=== PATIENT | female | born 1950 | race Caucasian/White ===

== ENCOUNTER 2016-12-04 17:00 | Inpatient (IN) | payer MEDICARE, BC ==
[~2016-12-04] VITALS: Ht 165.1 cm; Wt 124.5 kg
--- NOTE | ~2016-12-04 | CON ---
PATIENT'S NAME: SHAUN BOWEN [facility] AGE: 66 Y [address] ROOM: [place] [address] LOCATION: GPCU ADMIT DATE: 12/04/2016 Consultation DISCHARGE DATE: FAMILY PHYSICIAN: Nader Velarde MD ATTENDING PHYSICIAN: CANDICE SPARKS REFERRING PHYSICIAN: Moraima Smith NP REASON FOR CONSULTATION: This is a 66-year-old female seen for lower GI bleeding. HISTORY OF PRESENTING ILLNESS: This lady was hospitalized today after she was seen by Dr. Roland in a followup and she was told that she had been having lower GI bleeding 2 days prior to evaluation. She has been on Eliquis and Plavix until today for her PCI which she had in September of 2016. She denies any pain in the abdomen associated with bleeding. Denies any griping, nausea, vomiting, hematemesis, or melena. Blood was bright red and in the form of clots and she passed intermittently clots with stools or separate from stools. Denies any dizzy spells, blackout, or any fall. PAST MEDICAL HISTORY: Significant for diabetes mellitus type 2, arthritis, chronic feet and leg neuropathy, hyperlipidemia, peripheral vascular disease, hypertension. SURGICAL HISTORY: 1. Right total knee arthroplasty. 2. Tonsillectomy. 3. Umbilical hernia repair. 4. Oophorectomy. 5. History of non-ST AL in September 2016 followed by two stent placement in circumflex and right coronary artery. FAMILY HISTORY: Mother had diabetes mellitus and heart disease and breast cancer. Father had diabetes mellitus and heart problems. SOCIAL HISTORY: The patient is a former smoker, quit smoking 12 years ago, smoked one pack. She denies alcohol or illicit drug use. MEDICATIONS: Include, 1. Aspirin which was stopped one month ago. 2. Lipitor 20 mg. 3. Neurontin 900 mg twice daily. 4. Insulin Levemir 50 units subcutaneous daily in the evening. PATIENT'S NAME: SHAUN BOWEN [facility] AGE: 66 Y [address] ROOM: [place] [address] LOCATION: GPCU ADMIT DATE: 12/04/2016 Consultation DISCHARGE DATE: FAMILY PHYSICIAN: Nader Velarde MD ATTENDING PHYSICIAN: CANDICE SPARKS 5. NovoLog as needed. 6. Victoza 1.8 mg subcutaneous daily. 7. Lisinopril/hydrochlorothiazide 20/2.5 mg twice daily. 8. Metformin 1000 mg twice daily. 9. Nifedipine 60 mg daily. 10. Eliquis and Plavix were stopped today. ALLERGIES: PENICILLIN, BACTRIM, NITROFURANTOIN, VARICELLA VIRUS VACCINE, MOBIC, LEVAQUIN. REVIEW OF SYSTEMS: A 10-point review were negative other than mentioned above. PHYSICAL EXAMINATION: GENERAL: Examination shows a well-developed lady who is obese, comfortable in bed, not in any pain, and very pleasant and cooperative. 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 VITAL SIGNS: Her blood pressure was 182/81 and this was on 09/19/2016. Her pulse 94 per minute. Blood pressure today is 154/70, weight is 123 pounds, pulse is 65 per minute, temperature 97.7 degree Fahrenheit. HEENT: Examination of head; normocephalic, atraumatic. NECK: Supple. No lymphadenopathy. CHEST: Clear to palpation, percussion, and auscultation. CARDIAC: Examination reveals both heart sounds normal. No S3 or murmur. ABDOMEN: Soft. It is nontender. It is obese. There are normal bowel sounds. Viscera cannot be palpated because of obesity. Ascites cannot be purcussed UROGENITAL: Nontender lower abdomen. Bladder is not full. MUSCULOSKELETAL: Right knee replacement. She walks with the help of a cane and has pain in the left knee. NEUROLOGICAL: Cranial nerves 2 through 12 intact. Motor and sensory system intact. PSYCHOSOCIAL: She is very pleasant, cooperative, does not seem depressed. LABORATORY DATA: Electrolytes are normal. Glucose is 129, BUN 26, and creatinine 1.2. Albumin 3.1. Lipid profile is normal. CK-MB is 7.8 and troponin I is 0.84, this troponin was reported in September 2016. Hemoglobin today is 9.7, hematocrit 32.4, MCV 81.6, MCH is 24.4, platelet count is 228. Prothrombin time 11.4 and INR is 1.1. She had a lung ventilation scan on 09/14/2016, which showed pulmonary emboli on both sides. ASSESSMENT: 1. Mrs. Bowen has a recent history of gastrointestinal bleeding; however, she states that recent stool has been negative for blood. On visual PATIENT'S NAME: SHAUN BOWEN [facility] AGE: 66 Y [address] ROOM: [id number] [place], [place] [id number] LOC[facility]: [facility] ADMIT DATE: 12/04/2016 Consultation DISCHARGE DATE: FAMILY PHYSICIAN: Nader Velarde MD ATTENDING PHYSICIAN: CANDICE SPARKS examination, she is vitally stable. She is not dizzy or has any symptoms of blood loss, and as much as, she was taking Plavix and Eliquis until today, which was stopped. However, she never had a colonoscopy before. It may not be advisable to do colonoscopy until Saturday because she may need polypectomy which is not safe for at least three days after stopping the above medications. We will, therefore, go ahead and schedule her for EGD and colonoscopy for Saturday. She may stay in the hospital or may return as an outpatient. 2. I will discuss with Dr. Roland for withholding Plavix and Eliquis safely until Saturday. RECOMMENDATIONS: As mentioned above, EGD and colonoscopy and appropriate treatment accordingly for possible polypectomy, Hemoclip application, or APC cauterization as needed. We appreciate sharing care of this patient. MD LUDMILA [place]/david /[id number] d: 12/05/16 0540 t: 12/06/16 1125, CONSULTATION REPORT
--- NOTE | ~2016-12-04 | HP ---
PATIENT'S NAME: SHAUN MONTEIRO [facility] AGE: 66 Y [address] ROOM: [place] [address] LOCATION: GPCU ADMIT DATE: 12/04/2016 History & Physical DISCHARGE DATE: FAMILY PHYSICIAN: Nader Velarde MD ATTENDING PHYSICIAN: CANDICE SPARKS DATE OF SERVICE: CHIEF COMPLAINT: Acute gastrointestinal bleed. 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 The patient states that she had been noticing bright red blood when she wipes after using the bathroom for several weeks, which progressively gotten worse including noticing blood clot this morning. The patient is on Plavix and Eliquis since September of this past year for PE and recent drug-eluting stent placement management. The patient tells me that aspirin had been discontinued about a month ago by Dr. Roland. The patient denies any dizziness, lightheadedness, chest pain, shortness of breath related to this. Denies any dark-looking stool or melena. Also, denies any fevers, chills, or cough as well. Denies any use of NSAIDs. Never had a colonoscopy or EGD done before. PAST MEDICAL HISTORY: 1. Coronary artery disease, status post stent. 2. Type 2 diabetes. 3. Hypertension. 4. Hyperlipidemia. 5. PE. FAMILY HISTORY: She has a history of diabetes in the mother as well as history of heart disease and breast cancer in her mother as well. SOCIAL HISTORY: The patient is a former smoker. Quit about 12 years ago. Denies alcohol or illicit drug use. REVIEW OF SYSTEMS: A 10-point review of systems was conducted and were all negative except as mentioned in the HPI. PATIENT'S NAME: SHAUN MONTEIRO [facility] AGE: 66 Y [address] ROOM: [place] [address] LOCATION: GPCU ADMIT DATE: 12/04/2016 History & Physical DISCHARGE DATE: FAMILY PHYSICIAN: Nader Velarde MD ATTENDING PHYSICIAN: CANDICE SPARKS PHYSICAL EXAMINATION: VITAL SIGNS: Afebrile, blood pressure 170/65, heart rate 71, saturating 90% on room air. GENERAL: The patient is awake, alert, oriented x3. No apparent distress. HEENT: Moist mucous membranes. Conjunctival pallor noted. No scleral icterus. SKIN: Without rash or lesions. HEART: S1 and S2. Regular rate and rhythm. LUNGS: Clear to auscultation bilaterally. ABDOMEN: Soft, nontender, nondistended. Positive bowel sounds. MUSCULOSKELETAL: No joint tenderness or muscular tenderness noted. NEURO: Grossly nonfocal. ADMISSION LABORATORIES: Pending. ASSESSMENT AND PLAN: 1. Acute gastrointestinal bleed. Noting recent history of bright red blood per rectum. Hemodynamically stable. Source of the bleed appears to be a lower GI source in etiology. The patient is on Eliquis and Plavix for recent stent placement for coronary artery disease in September 2016 as well as on Eliquis for acute pulmonary embolism diagnosed during the same hospitalization as well. The patient is hemodynamically stable. We will check H and Hs. Placing a GI consult for evaluation and possible endoscopy urgently. 2. Coronary artery disease, status post drug-eluting stents x2 placement in September 2016. She had been taking Eliquis and Plavix. Aspirin had been discontinued about a month ago by Dr. Roland. Does not report any chest symptoms currently. 3. Hypertension. We will continue Norvasc and hold lisinopril and HCTZ for now. 4. Type 2 diabetes. We will treat with sliding scale insulin and Accu- Cheks. The patient will be n.p.o. after midnight in anticipation of an endoscopy and diabetes management will be modified as needed. 5. History of pulmonary embolism. We will hold Eliquis and await GI clearance to resume this. 6. Deep venous thrombosis prophylaxis. We will use SCDs. MD JES VAUGHN/david PATIENT'S NAME: SHAUN MONTEIRO [facility] AGE: 66 Y [address] ROOM: [id number] [place] [id number] LOCATION: [facility] ADMIT DATE: 12/04/2016 History & Physical DISCHARGE DATE: FAMILY PHYSICIAN: Nader Velarde MD ATTENDING PHYSICIAN: CANDICE SPARKS /[id number] D: [id number] T: 923 HISTORY & PHYSICAL
[~2016-12-04 17:00] MED LIST: ALEVE220 MG PO; ASCORBIC ACID500 MG PO; ASPIRIN LO-DOSE81 MG PO; CALCIUM 600 +1 EA13 PO; COLACE100 MG PO; COREG25 MG PO; DILAUDID 2MG(HYD2 MG PO; ELIQUIS5 MG PO; FLEXERIL10 MG PO; GLUCOPHAGE1000 MG PO; LEVEMIR FL100 UNIT/1 SUB-Q; LIPITOR80 MG PO; LISINOPRIL-HCT1 EAC1 PO; LOVENOX 3030 MG/0.3 SUB-Q; MIRALAX17 GM PO; MULTI FOR HER1 EAC2 PO; NEURONTIN300 MG PO; NIFEDIPINE ER90 M1 PO; NOVOLOG FL100 UNIT/1 SUB-Q; OMEGA-3 KRILL1 EAC3 PO; OXYGEN M-15 INH; PLAVIX75 MG PO; POTASSIUM GLUC500 MG PO; PROAIR HFA8.5 GM INH; PROTONIX40 MG PO; TYLENOL EXTRA500 MG PO; VICTOZA 2-0.6 MG/0.1 SUB-Q; [UNRECOGNIZED DRUG - OTHER] PO
[2016-12-04] MEDS ORDERED: COREG25 MG PO (18:55)
[2016-12-04] MEDS ORDERED: KEFLEX250 MG PO (18:55)
[2016-12-04] MEDS ORDERED: LASIX20 MG PO (18:58)
[2016-12-04] MEDS ORDERED: ULTRAM50 MG PO (18:59)
[2016-12-04] MEDS ORDERED: ASCORBIC ACID500 MG PO (18:59)
[2016-12-04] MEDS ORDERED: K-TAB 10MEQ10 MEQ PO (18:59)
[2016-12-04 20:18] LABS: BASOPHIL % 0.6 %; EOSINOPHIL # 0.2 K/uL (0.0-0.5); EOSINOPHIL % 2.9 %; HEMATOCRIT 32.4 % (33.0-46.0); HEMOGLOBIN 9.7 g/dL (10.0-15.0); IMMATURE GRANULOCYTE % 0.3 %; LYMPHOCYTE # 1.3 K/uL (0.8-4.0); LYMPHOCYTE % 18.4 %; MCH 24.4 pg (27.0-34.0); MCHC 29.9 gm/dL (32.0-36.5); MCV 81.6 fl (83.0-98.0); MONOCYTE # 0.5 K/uL (0.0-1.0); MONOCYTE % 7.3 %; MPV 10.3 fl (9.4-12.4); NEUTROPHIL # (ANC) 4.8 K/uL (1.8-7.8); NEUTROPHIL % 70.5 %; NRBC % 0 /100WBC (0-0.00); PLATELET COUNT 228 K/uL (150-450); RBC 3.97 M/uL (3.50-5.50); RDW-CV 16.1 % (11.9-14.6); WBC 6.8 K/uL (4.0-11.0)
[2016-12-04 20:24] LABS: INR - (THERAPEUTIC) 1.1 (0.9-1.1); PROTIME 11.4 SECONDS (9.6-11.1)
[2016-12-04 20:30] LABS: ALBUMIN 3.1 gm/dL (3.5-5.0); ANION GAP 12.9 (10.0-19.0); CALCIUM 9.2 mg/dL (8.5-10.5); CREATININE 1.2 mg/dL (0.5-1.1); MAGNESIUM 1.7 mg/dL (1.3-2.6); PHOSPHORUS 3.3 mg/dL (2.5-4.9); POTASSIUM 3.9 mMol/L (3.7-5.1)
[2016-12-05 04:58] LABS: BASOPHIL % 0.3 %; EOSINOPHIL # 0.2 K/uL (0.0-0.5); EOSINOPHIL % 3.6 %; HEMATOCRIT 29.7 % (33.0-46.0); HEMOGLOBIN 9.1 g/dL (10.0-15.0); IMMATURE GRANULOCYTE % 0.5 %; LYMPHOCYTE # 1.1 K/uL (0.8-4.0); LYMPHOCYTE % 18.9 %; MCH 24.7 pg (27.0-34.0); MCHC 30.6 gm/dL (32.0-36.5); MCV 80.7 fl (83.0-98.0); MONOCYTE # 0.5 K/uL (0.0-1.0); MONOCYTE % 9.1 %; MPV 10.4 fl (9.4-12.4); NEUTROPHIL # (ANC) 3.9 K/uL (1.8-7.8); NEUTROPHIL % 67.6 %; NRBC % 0 /100WBC (0-0.00); PLATELET COUNT 208 K/uL (150-450); RBC 3.68 M/uL (3.50-5.50); RDW-CV 16.1 % (11.9-14.6); WBC 5.8 K/uL (4.0-11.0)
[2016-12-05] MEDS ORDERED: SUPREP BOWEL P354 ML (11:43)
[2016-12-05] MEDS ORDERED: LOVENOX150 MG/1 M SUB-Q (11:50)
[2016-12-06] MEDS ORDERED: PLAVIX75 MG PO (11:38)
[2016-12-06] MEDS ORDERED: ELIQUIS5 MG PO (11:39)
== END 2016-12-05 12:07 | disposition disaster alternative care site (69) | DRG 378 ==
LOC: GPCU 17:31
PROVIDERS: ADMIT Internal Medicine
DX: K92.2 Gastrointestinal hemorrhage, unspecified (principal); Z68.42 Body mass index [BMI] 45.0-49.9, adult; E11.40 Type 2 diabetes mellitus with diabetic neuropathy, unspecified; D62 Acute posthemorrhagic anemia; I25.10 Atherosclerotic heart disease of native coronary artery without angina pectoris; Z95.5 Presence of coronary angioplasty implant and graft; I10 Essential (primary) hypertension; E78.5 Hyperlipidemia, unspecified; Z86.711 Personal history of pulmonary embolism; Z87.891 Personal history of nicotine dependence; Z79.02 Long term (current) use of antithrombotics/antiplatelets; Z79.01 Long term (current) use of anticoagulants; I73.9 Peripheral vascular disease, unspecified; I25.2 Old myocardial infarction; Z79.4 Long term (current) use of insulin; E66.01 Morbid (severe) obesity due to excess calories

== ENCOUNTER → 2016-12-07 | Day surgery (SDC) | payer MEDICARE, BC ==
[~2016-12-07] VITALS: Ht 165.1 cm; Wt 120.0 kg
[~2016-12-07] MED LIST changes: +K-TAB 10MEQ10 MEQ PO; +KEFLEX250 MG PO; +LASIX20 MG PO; +LOVENOX150 MG/1 M SUB-Q; +SUPREP BOWEL P354 ML; +ULTRAM50 MG PO
== END ==
LOC: GPOC 12-06 14:00 → GEND 08:33 → GPOC 09:30
PROC: 0DB98ZX Excision of Duodenum, Via Natural or Artificial Opening Endoscopic, Diagnostic (ICD-10-PCS; principal; 2016-12-07)
PROC: 0DBN8ZX Excision of Sigmoid Colon, Via Natural or Artificial Opening Endoscopic, Diagnostic (ICD-10-PCS; 2016-12-07)
DX: D12.5 Benign neoplasm of sigmoid colon (principal); K44.9 Diaphragmatic hernia without obstruction or gangrene; K57.30 Diverticulosis of large intestine without perforation or abscess without bleeding; I73.9 Peripheral vascular disease, unspecified; I25.10 Atherosclerotic heart disease of native coronary artery without angina pectoris; E78.5 Hyperlipidemia, unspecified; I10 Essential (primary) hypertension; E11.9 Type 2 diabetes mellitus without complications; Z96.651 Presence of right artificial knee joint; Z98.890 Other specified postprocedural states; Z79.4 Long term (current) use of insulin; Z79.84 Long term (current) use of oral hypoglycemic drugs; Z79.899 Other long term (current) drug therapy
CPT/HCPCS: J2001; J7030